=== PATIENT | male | born 1965 | race Asian ===

== ENCOUNTER 2016-09-08 11:18 | Day surgery (SDC) | END 2016-09-08 16:07 | disposition home or self-care (01) | DX: Z12.11 Encounter for screening for malignant neoplasm of colon (principal); K57.90 Diverticulosis of intestine, part unspecified, without perforation or abscess without bleeding; I10 Essential (primary) hypertension; E78.5 Hyperlipidemia, unspecified | CPT/HCPCS: 45378; J2250; J3010; Z7610 ==